=== PATIENT | female | born 1940 | race Caucasian/White ===

== ENCOUNTER 2016-07-07 20:30 | Inpatient (IN) | payer OTHER, MEDICARE ==
[~2016-07-07] VITALS: Ht 167.6 cm; Wt 119.7 kg
[~2016-07-07 20:30] MED LIST: ALPR0.2583 PO; BISA5TAB10 PO; BUPR-120 PO; CYAN100067 PO; DICL100G16 TP; DILT120C89 PO; DOCU-144 PO; EZET10TA PO; FERR-57 PO; HYDR-1189 PO; IBUP-1479 PO; MAG360OR3 PO; METH500T PO; METO25TA3 PO; MULT-33 PO; NEU100 PO; NITR50CA PO; OXYC10TA71 PO; PREMVAG VG; PRO20 PO; RIVA10TA PO; TOPI100T11 PO; VITD2000 PO; [UNRECOGNIZED DRUG - CODE] PO
--- NOTE | 2016-07-07 20:35 | NUR ---
Patient to ER bed 05 to gown for evaluation. Side rails up.
[2016-07-07 20:39] VITALS: BP 156/90; PULSE 84; RESP 19; TEMP 98.3; O2SAT 94
--- NOTE | 2016-07-07 20:40 | NUR ---
Dr murphy at bedside examining patient
--- NOTE | 2016-07-07 20:40 | NUR ---
Pt A&Ox4, brought by ambulance from [facility], pt reports she may have "choked" while eating dinner, has been coughing, stridor noted in upper airway, O2 95% room air, no chest retractions, cap refill <3, skin pink and warm.
[2016-07-07] MEDS ORDERED: NACL 0.9% 1,000 ML IV ONE (21:10)
[2016-07-07 21:29] LABS: BLOOD GAS PH 7.385 (7.350-7.450)
[2016-07-07 21:30] LABS: BLOOD GAS BASE EXCESS -3.4 mmol/L (-3.0-3.0); BLOOD GAS COHb% 0.9 % (0.5-1.5); BLOOD GAS HHB 7.2 % (0.0-6.0); BLOOD O2Hb% 91.4 % (94.0-97.0)
--- NOTE | 2016-07-07 21:30 | NUR ---
Pt off the unit for CT
[2016-07-07 21:40] LABS: EOSINOPHILS # (AUTO) 0.2 K/uL (0.0-0.4); LYMPHOCYTES # (AUTO) 1.3 K/uL (1.0-5.5)
[2016-07-07 21:42] LABS: BASOPHILS # (AUTO) 0.1 K/uL (0.0-0.2); BASOPHILS % (AUTO) 1.2 % (0.0-2.0); EOSINOPHILS % (AUTO) 1.9 % (0.0-4.0); HEMATOCRIT 43.3 % (36-48); HEMOGLOBIN 15.2 g/dL (12.0-16.0); LYMPHOCYTES % (AUTO) 14.2 % (20.5-51.5); MEAN CORPUSCULAR HEMOGLOBIN 33 pg (27-31); MEAN CORPUSCULAR HGB CONC 35 % (32-36); MEAN CORPUSCULAR VOLUME 95 fL (79.0-98.0); MONOCYTES # (AUTO) 0.5 K/uL (0.0-1.0); MONOCYTES % (AUTO) 5.1 % (1.7-9.3); NEUTROPHILS # (AUTO) 6.8 K/uL (1.8-7.7); NEUTROPHILS % (AUTO) 77.6 % (40.0-70.0); PLATELET COUNT (AUTO) 164 K/uL (130-430); RED BLOOD CELL COUNT(AUTO) 4.56 MIL/uL (4.2-6.2); RED CELL DISTRIBUTION WIDTH 12.8 % (9.0-15.0); WHITE BLOOD COUNT (AUTO) 8.9 K/uL (4.8-10.8)
[2016-07-07 21:46] LABS: ANION GAP 9 (5-15); CALCIUM 9.3 mg/dL (8.4-11.0); CHLORIDE 107 mmol/L (98-107); CREATININE 0.86 mg/dL (0.55-1.30); GLUCOSE 115 mg/dL (70-99); POTASSIUM 3.9 mmol/L (3.5-5.1); SODIUM SERUM 141 mmol/L (136-145); UREA NITROGEN, BLOOD 22 mg/dL (8-21)
[2016-07-07 21:51] LABS: ALANINE AMINOTRANSFERASE 18 U/L (12-78); ASPARTATE AMINOTRANSFERASE 12 U/L (10-37); TOTAL BILIRUBIN 0.4 mg/dL (0.0-1.0); TOTAL PROTEIN, SERUM 7.7 g/dL (6.4-8.3)
[2016-07-07] MEDS ORDERED: methylPREDNISolone SOD SUCC/PF 62.5 MG/ML VIAL IVP ONE (22:00)
--- NOTE | 2016-07-07 22:15 | NUR ---
Pt returned to unit with no incidents, VS WNL, skin pink and warm, respirations even and unlabored, cap refill <3.
[2016-07-07] MEDS ORDERED: PIPERACILLIN/TAZO 3.375 GM in NS 50 ML IV ONE (22:45)
--- NOTE | 2016-07-07 22:45 | NUR ---
Medication reconciliation completed with information provided by patient documentation . Any prior medication reconciliation on file was reviewed and corrected.
[2016-07-07] MEDS ORDERED: PIPERACILLIN/TAZOBACTAM 3.375 GM/VIAL (ZOSYN) IV ONE (22:54)
--- NOTE | 2016-07-07 23:19 | NUR ---
Report given to Isaac BECERRA
--- NOTE | 2016-07-07 23:36 | NUR ---
ADMISSION NOTE Received patient from ER via [facility] under the care of . Patient admitted with diagnosis of Aspiration. Patient is awake, alert, oriented X 4. Patient oriented to hospital room, call light, toileting, pain management and safety-teach back done. Patient informed that his nurse will Jim Suggs and that her room number is 114B. Call light within reach. Keep comfortable and all needs will be met.
--- NOTE | 2016-07-08 00:20 | NUR ---
Transfer to Tele via ACLS protocol. Licensed nurse present. IV present no signs or symptoms of infiltration.
--- NOTE | 2016-07-08 00:30 | NUR ---
CONSULT: DR CALLAHAN (DR PEDRO O/C) Consult was called, RE aspiration nancy Marc
--- NOTE | 2016-07-08 00:45 | NUR ---
Low Weight Loss matres applied d/t low davis score .
[2016-07-08 01:05] VITALS: BP 136/79; PULSE 74; RESP 20; TEMP 97.9; O2SAT 96
--- NOTE | 2016-07-08 01:23 | NUR ---
Patient awake alert assist for position change , HOB elevated on 02 NC @ 2 LPM skin dry warm no dyspnea on exertion / .
--- NOTE | 2016-07-08 01:24 | NUR ---
Hourly Rounding patient awake verbally indicative , call bullock with patient / .
--- NOTE | 2016-07-08 02:28 | NUR ---
Patient resting on 02 NC @ 2 LPM respirations unlabored HOB elevated chest movement also symmetrical no complaints made / .
[2016-07-08 04:09] VITALS: BP 149/67; PULSE 104; RESP 20; TEMP 97.8; O2SAT 93
[2016-07-08 04:22] VITALS: BP 128/72; PULSE 75; RESP 16; TEMP 98; O2SAT 96
--- NOTE | 2016-07-08 05:58 | NUR ---
assist patient for position change on air flow matres , kept clean & dry as needed no complaints made / .
--- NOTE | 2016-07-08 07:20 | NUR ---
initial notes: pt on bed sleeping. no distress noted. i.v. access patent. report given at bedside. call light within reach.
[2016-07-08 08:00] VITALS: BP 124/58; PULSE 74; RESP 14; TEMP 97.2; O2SAT 93
--- NOTE | 2016-07-08 09:53 | NUR ---
Nutrition Update Ward Scale 18 noted. Pt admitted for aspiration. Diet: full liquid BMI: 42.8 kg/m2 RD to follow per nutrition care standards.
--- NOTE | 2016-07-08 10:10 | NUR ---
rounds: pt on bed resting. no distress noted.
[2016-07-08] MEDS ORDERED: METHOCARBAMOL 500 MG TABLET PO PRN (11:00)
[2016-07-08] MEDS ORDERED: FERROUS SULFATE 325 MG TABLET.DR PO ONE (11:45)
[2016-07-08] MEDS ORDERED: oxyCODONE HCL 10 MG TAB.ER.12H PO ONE (11:45)
[2016-07-08] MEDS ORDERED: DILTIAZEM HCL 120 MG CAP.SR.24H PO ONE (11:45)
[2016-07-08] MEDS ORDERED: CHOLECALCIFEROL (VITAMIN D3) 2,000 UNIT TABLET PO ONE (11:45)
[2016-07-08] MEDS ORDERED: FLUoxetine HCL 20 MG CAPSULE (PROzac) PO ONE (11:45)
[2016-07-08] MEDS ORDERED: CYANOCOBALAMIN 1000 mCg TABLET PO ONE (11:45)
[2016-07-08] MEDS ORDERED: ALPRAZolam 0.25 MG TABLET PO ONE (11:45)
[2016-07-08] MEDS ORDERED: buPROPion HCL 150 MG XL TAB PO ONE (11:45)
[2016-07-08] MEDS ORDERED: METOPROLOL SUCCINATE 25 MG TAB.SR.24H (TOPROL XL) PO ONE (11:45)
[2016-07-08] MEDS ORDERED: CONJUGATED ESTROGENS VAGINAL CREAM 42.5 GM .APPL VG ONE (11:45)
[2016-07-08] MEDS ORDERED: MULTIVITS,CA,MINERALS/IRON/FA 1 TABLET PO ONE (11:45)
[2016-07-08] MEDS ORDERED: EZETIMIBE 10 MG TABLET PO ONE (11:45)
[2016-07-08] MEDS ORDERED: RIVAROXABAN 10 MG TABLET PO ONE (11:45)
[2016-07-08] MEDS: IBUPROFEN 400 MG TABLET PO PRN (12:01)
--- NOTE | 2016-07-08 12:09 | NUR ---
med pass: medication given and patient compliant.
[2016-07-08 12:43] VITALS: BP 127/65; PULSE 76; RESP 17; TEMP 97; O2SAT 95
--- NOTE | 2016-07-08 14:07 | NUR ---
rounds: pt on bed watching t.v. no distress noted.
[2016-07-08] MEDS ORDERED: MILK OF MAGNESIA 30 ML UDC PO PRN (14:30)
[2016-07-08] MEDS: FERROUS SULFATE 325 MG TABLET.DR PO SCH ×2 (15:08→20:28)
--- NOTE | 2016-07-08 16:00 | NUR ---
Tate rounds: seen by Dr. Daugherty.
[2016-07-08 16:20] VITALS: BP 121/66; PULSE 70; RESP 19; TEMP 97.4; O2SAT 94
--- NOTE | 2016-07-08 17:28 | NUR ---
SWALLOW EVAL LEFT FOR YAMEL () [phone] @ [phone]
--- NOTE | 2016-07-08 17:40 | NUR ---
rounds: pt on bed having dinner. no distress noted.
--- NOTE | 2016-07-08 18:36 | NUR ---
closing notes: pt on bed having dinner. stable. needs attended. call light within reach.
--- NOTE | 2016-07-08 19:45 | NUR ---
ROUNDS PATIENT IN BED, WATCHING TV, VITALS STABLE, DENIES ANY PAIN AND DISCOMFORT AT THIS TIME. ASSESSMENT DONE AND DOCUMENTED. SEE FLOWSHEET. NEEDS ATTENDED TO. REPOSITIONED AND MADE COMFORTABLE. SAFETY AND FALL PRECAUTION MEASURES IN PLACED. BED IN LOW AND LOCKED POSITION. CALL LIGHT PLACED WITHIN REACH.
[2016-07-08] MEDS: oxyCODONE HCL 10 MG TAB.ER.12H PO SCH (20:28)
[2016-07-08] MEDS: MULTIVITS,CA,MINERALS/IRON/FA 1 TABLET PO SCH (20:28)
[2016-07-08] MEDS: GABAPENTIN 100 MG CAPSULE PO SCH (20:29)
[2016-07-08] MEDS: TOPIRAMATE 100 MG TABLET(Topamax) PO SCH (20:29)
[2016-07-08] MEDS: ALPRAZolam 0.25 MG TABLET PO SCH (20:30)
--- NOTE | 2016-07-08 21:15 | NUR ---
MEDICATION DUE MEDICATIONS GIVEN SCHEDULED, TOLERATED WELL. WILL CONTINUE TO MONITOR.
[2016-07-09] VITALS: BP 126/68; PULSE 72; RESP 19; TEMP 97.6; O2SAT 96
--- NOTE | 2016-07-09 | NUR ---
PATIENT RESTING: Patient resting quietly. No acute distress noted. Vital signs within normal range.
--- NOTE | 2016-07-09 02:30 | NUR ---
PATIENT RESTING: Patient resting quietly. No acute distress noted. Vital signs within normal range.
--- NOTE | 2016-07-09 04:00 | NUR ---
PATIENT RESTING: Patient resting quietly. No acute distress noted. Vital signs within normal range.
[2016-07-09 04:45] VITALS: BP 122/72; PULSE 74; RESP 19; TEMP 97.9; O2SAT 98
--- NOTE | 2016-07-09 06:48 | NUR ---
CLOSING NOTES PATIENT AWAKE, VITALS STABLE, ALL NEEDS ATTENDED TO. SAFETY AND FALL PRECAUTION MEASURES MAINTAINED. CALL LIGHT PLACED WITHIN REACH.
--- NOTE | 2016-07-09 07:20 | NUR ---
initial notes: pt on bed sleeping. no distress noted. i.v. access patent. on scd. call light within reach. report given at bedside.
[2016-07-09 08:00] VITALS: BP 131/63; PULSE 70; RESP 14; TEMP 97.3; O2SAT 95
[2016-07-09] MEDS: buPROPion HCL 150 MG XL TAB PO SCH (09:27)
[2016-07-09] MEDS: oxyCODONE HCL 10 MG TAB.ER.12H PO SCH ×2 (09:27→21:31)
[2016-07-09] MEDS: FLUoxetine HCL 20 MG CAPSULE (PROzac) PO SCH (09:29)
[2016-07-09] MEDS: RIVAROXABAN 10 MG TABLET PO SCH (09:29)
[2016-07-09] MEDS: DILTIAZEM HCL 120 MG CAP.SR.24H PO SCH (09:29)
[2016-07-09] MEDS: FERROUS SULFATE 325 MG TABLET.DR PO SCH ×3 (09:29→21:32)
[2016-07-09] MEDS: CYANOCOBALAMIN 1000 mCg TABLET PO SCH (09:30)
[2016-07-09] MEDS: MULTIVITS,CA,MINERALS/IRON/FA 1 TABLET PO SCH ×2 (09:30→21:33)
[2016-07-09] MEDS: EZETIMIBE 10 MG TABLET PO SCH (09:30)
[2016-07-09] MEDS: ALPRAZolam 0.25 MG TABLET PO SCH ×2 (09:31→21:34)
[2016-07-09] MEDS: CHOLECALCIFEROL (VITAMIN D3) 2,000 UNIT TABLET PO SCH (09:31)
[2016-07-09] MEDS: METOPROLOL SUCCINATE 25 MG TAB.SR.24H (TOPROL XL) PO SCH (09:41)
--- NOTE | 2016-07-09 09:44 | NUR ---
med pass: pt given medication with water and able to tolerate.
[2016-07-09 12:00] VITALS: BP 119/47; PULSE 64; RESP 20; TEMP 98; O2SAT 96
--- NOTE | 2016-07-09 13:30 | NUR ---
Speech Therapy: swallow eval done and recommended for mechanical soft diet.
--- NOTE | 2016-07-09 14:02 | NUR ---
S.T. SWALLOW EVAL COMPLETED. PT PRESENTS W/ FUNCTIONAL OROPHARYNGEAL SWALLOW W/ NO S/S OF ASPIRATION. [facility]. NURSE ZHANE NOTIFIED. [id number] CI G8997 CI G8998 CI NOMS LEVEL 6
--- NOTE | 2016-07-09 14:24 | NUR ---
rounds: pt on bed resting. stable.
[2016-07-09 16:00] VITALS: BP 133/60; PULSE 66; RESP 19; TEMP 98.8; O2SAT 94
[2016-07-09 17:39] VITALS: Ht 167.6 cm; Wt 119.7 kg
--- NOTE | 2016-07-09 18:46 | NUR ---
closing notes: patient changed to mechanical soft. she tolerated well without aspiration. Sitting on her bed. Stable. call light within reach. report will be given to incoming nurse.
--- NOTE | 2016-07-09 20:00 | NUR ---
ROUNDS PATIENT AWAKE, WATCHING TV, VITALS STABLE, DENIES ANY PAIN AND DISCOMFORT AT THIS TIME. ASSESSMENT DONE AND DOCUMENTED. SSEE FLOWSHEET. NEEDS ATTENDED TO. SAFETY AND FALL PRECAUTION MEASURES IN PLACED. BED IN LOW AND LOCKED POSITION. CALL LIGHT PLACED WITHIN REACH.
--- NOTE | 2016-07-09 21:10 | NUR ---
MEDICATION DUE MEDICATIONS GIVEN SCHEDULED, TOLERATED WELL. WILL CONTINUE TO MONITOR.
[2016-07-09] MEDS: TOPIRAMATE 100 MG TABLET(Topamax) PO SCH (21:32)
[2016-07-09] MEDS: GABAPENTIN 100 MG CAPSULE PO SCH (21:34)
[2016-07-09 23:59] VITALS: BP 151/61; PULSE 74; RESP 16; TEMP 97.6; O2SAT 96
--- NOTE | 2016-07-10 | NUR ---
PATIENT RESTING: Patient resting quietly. No acute distress noted. Vital signs within normal range.
--- NOTE | 2016-07-10 02:15 | NUR ---
PATIENT RESTING: Patient resting quietly. No acute distress noted. Vital signs within normal range.
[2016-07-10 04:14] VITALS: BP 131/69; PULSE 66; RESP 16; TEMP 98.4; O2SAT 93
[2016-07-10 07:34] LABS: BASOPHILS % (AUTO) 0.6 % (0.0-2.0); EOSINOPHILS # (AUTO) 0.3 K/uL (0.0-0.4); EOSINOPHILS % (AUTO) 4.8 % (0.0-4.0); HEMATOCRIT 40.3 % (36-48); HEMOGLOBIN 13.7 g/dL (12.0-16.0); LYMPHOCYTES # (AUTO) 2.1 K/uL (1.0-5.5); LYMPHOCYTES % (AUTO) 35.4 % (20.5-51.5); MEAN CORPUSCULAR HEMOGLOBIN 34 pg (27-31); MEAN CORPUSCULAR HGB CONC 34 % (32-36); MEAN CORPUSCULAR VOLUME 100 fL (79.0-98.0); MONOCYTES # (AUTO) 0.5 K/uL (0.0-1.0); MONOCYTES % (AUTO) 8.8 % (1.7-9.3); NEUTROPHILS # (AUTO) 3.1 K/uL (1.8-7.7); NEUTROPHILS % (AUTO) 50.4 % (40.0-70.0); PLATELET COUNT (AUTO) 151 K/uL (130-430); RED BLOOD CELL COUNT(AUTO) 4.05 MIL/uL (4.2-6.2); RED CELL DISTRIBUTION WIDTH 12.8 % (9.0-15.0)
[2016-07-10 08:00] LABS: ANION GAP 5 (5-15); CALCIUM 8.6 mg/dL (8.4-11.0); CHLORIDE 107 mmol/L (98-107); CREATININE 0.76 mg/dL (0.55-1.30); GLUCOSE 83 mg/dL (70-99); POTASSIUM 3.8 mmol/L (3.5-5.1); SODIUM SERUM 142 mmol/L (136-145); UREA NITROGEN, BLOOD 22 mg/dL (8-21)
--- NOTE | 2016-07-10 08:00 | NUR ---
Am rounds Pt received pt awake alert oriented x3. Pt noted though to be slow to respond at times. Pt Vital SS, denies any pain or distress. Pt has iv patent no sign of infiltration, right AC. Pt has SCD bilaterally with heels elevated. No pain or distress at this time. Call light in reach. talked to patient about her POC. Verbalized understanding.
[2016-07-10] MEDS: CHOLECALCIFEROL (VITAMIN D3) 2,000 UNIT TABLET PO SCH (08:30)
[2016-07-10] MEDS: METOPROLOL SUCCINATE 25 MG TAB.SR.24H (TOPROL XL) PO SCH (08:31)
[2016-07-10] MEDS: FLUoxetine HCL 20 MG CAPSULE (PROzac) PO SCH (08:31)
[2016-07-10] MEDS: DILTIAZEM HCL 120 MG CAP.SR.24H PO SCH (08:32)
[2016-07-10] MEDS: RIVAROXABAN 10 MG TABLET PO SCH (08:32)
[2016-07-10] MEDS: buPROPion HCL 150 MG XL TAB PO SCH (08:32)
[2016-07-10] MEDS: oxyCODONE HCL 10 MG TAB.ER.12H PO SCH ×2 (08:32→20:59)
[2016-07-10] MEDS: MULTIVITS,CA,MINERALS/IRON/FA 1 TABLET PO SCH ×2 (08:33→20:59)
[2016-07-10] MEDS: FERROUS SULFATE 325 MG TABLET.DR PO SCH ×3 (08:33→20:59)
[2016-07-10] MEDS: CYANOCOBALAMIN 1000 mCg TABLET PO SCH (08:33)
[2016-07-10] MEDS: EZETIMIBE 10 MG TABLET PO SCH (08:33)
[2016-07-10] MEDS: ALPRAZolam 0.25 MG TABLET PO SCH ×2 (08:34→20:58)
[2016-07-10 08:42] VITALS: BP 141/75; PULSE 68; RESP 18; TEMP 98.6; O2SAT 96
--- NOTE | 2016-07-10 11:30 | NUR ---
Call from son Harpal. States he will pass by to se patient later.
--- NOTE | 2016-07-10 11:49 | NUR ---
trigeminy reported. no cardio consults. Dr cedeno paged.
--- NOTE | 2016-07-10 11:59 | NUR ---
Dr Kinsey made aware of the episode of PVC - Trigeminy. No new orders. Pts VSS.
[2016-07-10 12:00] VITALS: BP 124/67; PULSE 69; RESP 21; TEMP 98; O2SAT 96
[2016-07-10] MEDS: CONJUGATED ESTROGENS VAGINAL CREAM 42.5 GM .APPL VG SCH (13:36)
--- NOTE | 2016-07-10 14:00 | NUR ---
Rounds Patient administered own vaginal cream scheduled MWF. Pt cleaned and repositioned.
[2016-07-10] MEDS: IBUPROFEN 400 MG TABLET PO PRN (14:55)
[2016-07-10 16:00] VITALS: BP 132/80; PULSE 66; RESP 20; TEMP 99.3; O2SAT 95
--- NOTE | 2016-07-10 16:00 | NUR ---
Call from patients sister from [facility], spoke to patient. Pt stable, call light in reach. Pt also repositioned.
--- NOTE | 2016-07-10 18:29 | NUR ---
Rounds Patient resting no distress, seizure pads in place, IV with no signs of infiltration or infection. Call light in reach.
--- NOTE | 2016-07-10 18:30 | NUR ---
Closing note Pt resting no distress. Will endorse to shift foreman.
[2016-07-10 20:00] VITALS: BP 135/77; PULSE 69; RESP 18; TEMP 98.6; O2SAT 96
--- NOTE | 2016-07-10 20:00 | NUR ---
Initial Notes Received patient resting in bed with eyes closed, easily aroused to name. Patient awake, alert, oriented but slow to respond at times. Patient denies any acute distress or pain at this time. Breathing even and unlabored on room air. Vital signs stable. IV site patent/clean/dry. Patient on low air loss mattress with seizure precautions. SCDs to BLE. Educated patient on use of call light for assistance and fall precautions, patient verbalized understanding. Incontinence care provided, and patient repositioned for comfort. Call light in hand, will continue to monitor.
[2016-07-10] MEDS: GABAPENTIN 100 MG CAPSULE PO SCH (20:58)
[2016-07-10] MEDS: TOPIRAMATE 100 MG TABLET(Topamax) PO SCH (20:59)
--- NOTE | 2016-07-10 22:11 | NUR ---
Rounds Patient resting in bed with eyes closed. No acute distress noted. Breathing even and unlabored. Call light in hand, will continue to monitor for changes and safety.
[2016-07-11] VITALS: BP 131/74; PULSE 70; RESP 16; TEMP 97.5; O2SAT 96
--- NOTE | 2016-07-11 | NUR ---
Rounds Patient resting in bed, awake. Patient denies any acute distress or pain. Breathing even and unlabored. Patient repositioned for comfort. Needs addressed, call light in hand. Will continue to monitor.
--- NOTE | 2016-07-11 02:00 | NUR ---
Rounds Patient resting in bed with eyes closed. No acute distress noted, breathing even and unlabored. Call light in hand, will continue to monitor.
[2016-07-11 04:00] VITALS: BP 127/71; PULSE 59; RESP 16; TEMP 76.4; TEMP 97.4; O2SAT 93
--- NOTE | 2016-07-11 04:06 | NUR ---
Rounds Patient resting in bed with eyes closed, easily aroused. Patient denies any acute distress or pain at this time. Needs addressed, call light in hand. Will continue to monitor.
--- NOTE | 2016-07-11 06:33 | NUR ---
Closing Notes Patient resting in bed with eyes closed, easily aroused. Patient denies any acute distress or pain. Breathing even and unlabored. IV site patent/clean/dry. Incontinence care provided. Needs addressed throughout shift. Call light in hand, fall precautions in place. Will continue to monitor for changes and safety, and endorse all patient care/needs to oncoming nurse.
[2016-07-11 07:42] LABS: ANION GAP 6 (5-15); CALCIUM 8.7 mg/dL (8.4-11.0); CHLORIDE 106 mmol/L (98-107); CREATININE 0.85 mg/dL (0.55-1.30); GLUCOSE 86 mg/dL (70-99); PHOSPHORUS 4.1 mg/dL (2.7-4.5); SODIUM SERUM 139 mmol/L (136-145); UREA NITROGEN, BLOOD 27 mg/dL (8-21)
[2016-07-11 08:00] VITALS: BP 110/43; PULSE 65; RESP 19; TEMP 97.7; O2SAT 97
--- NOTE | 2016-07-11 08:10 | NUR ---
OPENING NOTE RECEIVED REPORT FROM NIGHT NURSE, PATIENT IS RESTING COMFORTABLY IN BED WITH NO COMPLAINTS OF PAIN, NO NOTED DISTRESS, DISCOMFORT OR SOB. PATIENT IS ALERT AND ORIENTED AND ABLE TO COMMUNICATE NEEDS TO STAFF. PATIENT IS BEDREST AND HAS SEIZURE PRECAUTIONS ON BED. BED IS IN LOWEST POSITION AND CALL LIGHT IS WITHIN REACH. WILL CONTINUE TO MONITOR.
[2016-07-11] MEDS: RIVAROXABAN 10 MG TABLET PO SCH (08:53)
[2016-07-11] MEDS: EZETIMIBE 10 MG TABLET PO SCH (08:53)
[2016-07-11] MEDS: CYANOCOBALAMIN 1000 mCg TABLET PO SCH (08:53)
[2016-07-11] MEDS: DILTIAZEM HCL 120 MG CAP.SR.24H PO SCH (08:54)
[2016-07-11] MEDS: oxyCODONE HCL 10 MG TAB.ER.12H PO SCH ×2 (08:54→21:22)
[2016-07-11] MEDS: FERROUS SULFATE 325 MG TABLET.DR PO SCH ×3 (08:55→21:22)
[2016-07-11] MEDS: MULTIVITS,CA,MINERALS/IRON/FA 1 TABLET PO SCH ×2 (08:55→21:22)
[2016-07-11] MEDS: ALPRAZolam 0.25 MG TABLET PO SCH ×2 (08:55→21:23)
[2016-07-11] MEDS: FLUoxetine HCL 20 MG CAPSULE (PROzac) PO SCH (08:56)
[2016-07-11] MEDS: buPROPion HCL 150 MG XL TAB PO SCH (08:56)
[2016-07-11] MEDS: CHOLECALCIFEROL (VITAMIN D3) 2,000 UNIT TABLET PO SCH (08:57)
[2016-07-11] MEDS: METOPROLOL SUCCINATE 25 MG TAB.SR.24H (TOPROL XL) PO SCH (09:00)
--- NOTE | 2016-07-11 10:25 | NUR ---
note patient resting comfortably. no pain, discomfort, SOB, or distress noted. vital signs were within normal limits. blood pressure was 110/43 and metoprolol was withheld. all other medications were administered with no problems. bed in lowest position, safety padding in place, and call light within reach. will continue to monitor.
[2016-07-11 12:00] VITALS: BP 105/53; PULSE 68; RESP 20; TEMP 97.9; O2SAT 93
--- NOTE | 2016-07-11 12:33 | NUR ---
notes Patient is resting comfortably. she rates her pain as mild and states she is comfortable. Patient is in good spirits. Bed is in lowest position, padding on bed is in place, and call light is within reach. will continue to monitor.
--- NOTE | 2016-07-11 14:28 | NUR ---
notes Patient is resting comfortably and in good spirits. No signs or symptoms of discomfort or distress. Padding in place on bed rails and bed in lowest position. call light within reach. will continue to monitor.
--- NOTE | 2016-07-11 16:36 | NUR ---
notes Patient is resting comfortably. Patient denies any pain or distress. Padding is in place on bed rails and bed is in lowest position. Call light is within reach. Will continue to monitor.
[2016-07-11 18:12] VITALS: BP 127/62; PULSE 77; RESP 20; TEMP 97.2; O2SAT 93
[2016-07-11] MEDS: HYDROcodone/ACETAMIN 5-325 MG TAB (NORCO/ VICODIN) PO PRN (18:20)
--- NOTE | 2016-07-11 18:26 | NUR ---
CLOSING NOTE PATIENT COMPLAINED OF PAIN, PAIN MEDICATION GIVEN. NO NOTED DISTRESS OR SOB. WILL MONITOR PAIN LEVEL. BED IN LOWEST POSITION, PADDING ON BED, CALL LIGHT WITHIN REACH. WILL GIVE REPORT TO AMERICO BECERRA
[2016-07-11 20:00] VITALS: BP 117/67; PULSE 83; RESP 19; TEMP 97.4; O2SAT 94
--- NOTE | 2016-07-11 20:00 | NUR ---
PM Shift Assessment Received patient lying on low air loss mattress, no acute distress noted, AAO x2 with confusion at times. Patient was reoriented x4 and verbalized understanding. Assessment complete, vital signs stable. SCD's noted to BLE. Padded side rails for safety. Plan of care discussed with patient and updated on board. Patient able to provide return demonstration of call light, instructed to call for assistance as needed, she verbalized understanding. Call light is within reach, all fall and safety precautions in place, will continue to monitor for change in patient status.
[2016-07-11] MEDS: GABAPENTIN 100 MG CAPSULE PO SCH (21:22)
[2016-07-11] MEDS: TOPIRAMATE 100 MG TABLET(Topamax) PO SCH (21:23)
--- NOTE | 2016-07-11 21:45 | NUR ---
Transfer of Care Patient is resting quietly in bed, no acute distress noted. Scheduled medications were administered as ordered per MD, patient tolerated well. Transfer of care was endorsed to Britt BECERRA at bedside.
--- NOTE | 2016-07-11 22:00 | NUR ---
PM ASSESSMENT: Resumed care of patient at this time. Received report from MARIAM Cabral. Patient awake, alert x 1 with periods of confusion. Able to make needs known verbally. No acute distress or SOB noted. Breathing even and unlabored. Denies any pain or discomfort. Bilateral SCDs in place. On low air loss mattress. HOB elevated at 30 degrees, with 2 padded side rails up and bed in lowest level. Bed brakes locked. All needs met. Call light within reach. Will continue to monitor.
--- NOTE | 2016-07-11 23:17 | NUR ---
RN ROUNDS: Patient sleeping comfortably at this time. No seizure activity noted. Patient in no acute distress or SOB at this time. Will continue to monitor.
[2016-07-12] VITALS (7 sets, daily range): BP systolic 109–135; BP diastolic 48–82; PULSE 78–101; RESP 15–19; TEMP 97.5–98.9; O2SAT 92–97
--- NOTE | 2016-07-12 02:13 | NUR ---
RN ROUNDS: Patient sleeping comfortably at this time. No acute distress or SOB noted. Vital signs stable. Will continue to monitor.
--- NOTE | 2016-07-12 05:08 | NUR ---
RN ROUNDS: Patient resting comfortably at this time. Patient repositioned by staff every 2 hours with pillow support. Patient in no acute distress or SOB. Safety and fall precautions in place. Will continue to monitor.
[2016-07-12 07:35] LABS: BASOPHILS % (AUTO) 0.5 % (0.0-2.0); EOSINOPHILS # (AUTO) 0.2 K/uL (0.0-0.4); EOSINOPHILS % (AUTO) 4.4 % (0.0-4.0); HEMATOCRIT 39.7 % (36-48); HEMOGLOBIN 13.4 g/dL (12.0-16.0); LYMPHOCYTES # (AUTO) 1.7 K/uL (1.0-5.5); LYMPHOCYTES % (AUTO) 31.4 % (20.5-51.5); MEAN CORPUSCULAR HEMOGLOBIN 33 pg (27-31); MEAN CORPUSCULAR HGB CONC 34 % (32-36); MEAN CORPUSCULAR VOLUME 97 fL (79.0-98.0); MONOCYTES # (AUTO) 0.5 K/uL (0.0-1.0); MONOCYTES % (AUTO) 8.6 % (1.7-9.3); NEUTROPHILS # (AUTO) 3.2 K/uL (1.8-7.7); NEUTROPHILS % (AUTO) 55.1 % (40.0-70.0); PLATELET COUNT (AUTO) 140 K/uL (130-430); RED BLOOD CELL COUNT(AUTO) 4.08 MIL/uL (4.2-6.2); RED CELL DISTRIBUTION WIDTH 12.9 % (9.0-15.0); WHITE BLOOD COUNT (AUTO) 5.6 K/uL (4.8-10.8)
[2016-07-12 07:38] LABS: ANION GAP 7 (5-15); CALCIUM 8.5 mg/dL (8.4-11.0); CHLORIDE 107 mmol/L (98-107); CREATININE 0.78 mg/dL (0.55-1.30); GLUCOSE 89 mg/dL (70-99); PHOSPHORUS 3.7 mg/dL (2.7-4.5); SODIUM SERUM 141 mmol/L (136-145); UREA NITROGEN, BLOOD 27 mg/dL (8-21)
--- NOTE | 2016-07-12 08:00 | NUR ---
AM ASSESSMENT. PT AWAKE AND ALERT, ASSESSED BODY DISCOMFORTS, DENIES ANY, REPOSITIONED UPRIGHT PRIOR TO BREAKFAST, VITAL SIGNS STABLE, WILL CONTINUE TO MONITOR.
--- NOTE | 2016-07-12 08:30 | NUR ---
DIET. PT HAVING HER BREAKFAST, WITH GOOD APPETITE.
[2016-07-12] MEDS: DILTIAZEM HCL 120 MG CAP.SR.24H PO SCH (08:31)
[2016-07-12] MEDS: FLUoxetine HCL 20 MG CAPSULE (PROzac) PO SCH (08:32)
[2016-07-12] MEDS: CHOLECALCIFEROL (VITAMIN D3) 2,000 UNIT TABLET PO SCH (08:32)
[2016-07-12] MEDS: FERROUS SULFATE 325 MG TABLET.DR PO SCH ×3 (08:33→20:30)
[2016-07-12] MEDS: oxyCODONE HCL 10 MG TAB.ER.12H PO SCH ×2 (08:33→20:26)
[2016-07-12] MEDS: CYANOCOBALAMIN 1000 mCg TABLET PO SCH (08:33)
[2016-07-12] MEDS: MULTIVITS,CA,MINERALS/IRON/FA 1 TABLET PO SCH ×2 (08:33→20:31)
[2016-07-12] MEDS: METOPROLOL SUCCINATE 25 MG TAB.SR.24H (TOPROL XL) PO SCH (08:34)
[2016-07-12] MEDS: RIVAROXABAN 10 MG TABLET PO SCH (08:42)
[2016-07-12] MEDS: EZETIMIBE 10 MG TABLET PO SCH (08:42)
[2016-07-12] MEDS: buPROPion HCL 150 MG XL TAB PO SCH (08:42)
[2016-07-12] MEDS: ALPRAZolam 0.25 MG TABLET PO SCH ×2 (08:43→20:25)
--- NOTE | 2016-07-12 10:00 | NUR ---
HYGIENE. PT INCONTINENT OF BLADDER, SPONGE BATH PROVIDED, PERINEAL AREA CLEANSED WITH SOAPY TOWEL. APPLIED Z-GUARD LOTION TO ABDOMINAL FOLDS.
[2016-07-12] MEDS: CONJUGATED ESTROGENS VAGINAL CREAM 42.5 GM .APPL VG SCH (10:24)
[2016-07-12] MEDS: HYDROcodone/ACETAMIN 5-325 MG TAB (NORCO/ VICODIN) PO PRN (15:50)
--- NOTE | 2016-07-12 18:15 | NUR ---
NURSING. PT ALERT, IN NO SIGNS OF DISTRESS, UNEVENTFUL SHIFT, CALL LIGHT IN REACH, WILL CONTINUE TO MONITOR.
--- NOTE | 2016-07-12 19:30 | NUR ---
initial nursing notes: Patient is awake. Patient is on an air bed. Patient's siderails are padded. Patient has a saline lock on the left AC. Patient has SCD's.
[2016-07-12] MEDS: GABAPENTIN 100 MG CAPSULE PO SCH (20:22)
[2016-07-12] MEDS: TOPIRAMATE 100 MG TABLET(Topamax) PO SCH (20:29)
--- NOTE | 2016-07-12 21:30 | NUR ---
nursing rounds: Patient is watching television. Kept head of the bed elevated to prevent aspiration.
--- NOTE | 2016-07-12 23:30 | NUR ---
nursing rounds: Patient resting in bed. Kept oxygen on 2L via nasal cannula. O2 sat: 96%.
[2016-07-13 00:47] VITALS: BP 115/68; PULSE 82; RESP 16; TEMP 98.2
--- NOTE | 2016-07-13 01:30 | NUR ---
nursing rounds: Patient is asleep in bed. Patient has no shortness of breath.
--- NOTE | 2016-07-13 03:25 | NUR ---
nursing rounds: Patient calmly resting in bed. Patient has no falls and no injuries.
[2016-07-13 04:19] VITALS: BP 116/70; PULSE 80; RESP 16; TEMP 98.6
--- NOTE | 2016-07-13 05:20 | NUR ---
nursing rounds: Patient is sleeping in bed. Patient has no respiratory distress.
--- NOTE | 2016-07-13 07:44 | NUR ---
closing nursing notes: Patient is awake, alert and oriented X 4. Patient denies of having pain. Patient is in no acute respiratory distress. Saline lock on the left AC is intact. Kept head of the bed elevated and siderails padded. Provided nursing report to incoming morning shift nurse, MARIAM Benz, at patient's bedside.
--- NOTE | 2016-07-13 09:12 | NUR ---
MEDICATION PASS. PATIENT ASSESSMENT. SHORTNESS OF BREATH ON EXCERTION MAY RELATE TO SIDE EFFECTS OF MEDICATION.
[2016-07-13] MEDS: FLUoxetine HCL 20 MG CAPSULE (PROzac) PO SCH (09:14)
[2016-07-13] MEDS: RIVAROXABAN 10 MG TABLET PO SCH (09:14)
[2016-07-13] MEDS: CHOLECALCIFEROL (VITAMIN D3) 2,000 UNIT TABLET PO SCH (09:14)
[2016-07-13] MEDS: CYANOCOBALAMIN 1000 mCg TABLET PO SCH (09:14)
[2016-07-13] MEDS: buPROPion HCL 150 MG XL TAB PO SCH (09:14)
[2016-07-13] MEDS: oxyCODONE HCL 10 MG TAB.ER.12H PO SCH (09:14)
[2016-07-13] MEDS: ALPRAZolam 0.25 MG TABLET PO SCH (09:15)
[2016-07-13] MEDS: MULTIVITS,CA,MINERALS/IRON/FA 1 TABLET PO SCH (09:15)
[2016-07-13] MEDS: DILTIAZEM HCL 120 MG CAP.SR.24H PO SCH (09:15)
[2016-07-13] MEDS: METOPROLOL SUCCINATE 25 MG TAB.SR.24H (TOPROL XL) PO SCH (09:15)
[2016-07-13] MEDS: FERROUS SULFATE 325 MG TABLET.DR PO SCH ×2 (09:15→15:00)
[2016-07-13] MEDS: EZETIMIBE 10 MG TABLET PO SCH (09:15)
[2016-07-13 09:19] VITALS: BP 126/73; PULSE 72; RESP 16; TEMP 97.2; O2SAT 95
--- NOTE | 2016-07-13 10:45 | NUR ---
GIVEN PRN MILK OF MAGNESIA. PATIENT C/O CONSTIPATION. CDA TEACHER NOTES PATIENT PASSING GAS.
[2016-07-13] MEDS ORDERED: BISACODYL 10 MG/SUPPOSITORY RC ONE (12:00)
[2016-07-13] MEDS ORDERED: BISACODYL 10 MG/SUPPOSITORY RC PRN (12:00)
[2016-07-13 12:51] VITALS: BP 137/87; PULSE 84; RESP 18; TEMP 97.7; O2SAT 91
--- NOTE | 2016-07-13 12:58 | NUR ---
PATIENT TOLERATING 100% OF LUNCH. PASS TO GIVE SUPPOSITORY. SAYS SHE WILL CALL WHEN READY FOR ADMINISTRATION TO ASSIST WITH BM.
--- NOTE | 2016-07-13 14:30 | NUR ---
CASE MANAGEMENT PATIENT WILL BE TRANSFERRED BACK TO [facility] PER MD ORDERS.[facility] TO TRANSPORT PATIENT AT 6PM. NOTIFIED PATIENTS SISTER RANJAN DEJESUS AT . PATIENT AGREES WITH DCP. STAFF INFORMED.
--- NOTE | 2016-07-13 14:48 | NUR ---
ROUNDS TO PATIENT. ONE SMALL AND ONE MEDIUM BM AFTER SUPPOSITORY AND MILK OF MAGNESIA PRIOR TO THIS.
[2016-07-13 16:02] VITALS: BP 137/87; PULSE 84; RESP 18; TEMP 97.7; O2SAT 91
[2016-07-13 16:36] VITALS: BP 140/90; PULSE 79; RESP 19; TEMP 96.9; O2SAT 93
--- NOTE | 2016-07-13 17:36 | NUR ---
Nutrition F/U Admitting Diagnosis Aspiration pneumonia Past Medical History HTN, HLD, chronic anxiety per MD notes Pertinent Medications zetia, VIT B-12, VIT D-3, therageran, ferrous sulfate, MOM, norco, dulcolax supp Current Diet Order Mechanical soft, chopped diet x5 day Height (Feet) 5 feet Height (Inches) 6.00 inches Weight (Pounds) 264 pounds Weight (Calculated Kilograms) 119.461075 kilograms Patient Weight 119.748 kg Body Mass Index 42.61 [place]/Adjusted Body Weight IBW: 130 lb, 59 kg. 203% of IBW. Adj IBW (obesity): 164 lb, 74 kg Estimated Needs (modified) 6069-8687 kcal/day (BEE x 1-1.2 for maintenance) Grams of Protein per Day 59-71 gm/day (1-1.2 gm/kg IBW for geriatric maintenance) Fluid Intake Goal 1.5-1.8 L/day (1 ml/kcal/day for maintenance) Pertinent Labs 07/12/16: BUN 27 H, BG 89 WNL (improved), Mg 2.4 H Other Subjective Data Pt seen resting in bed at time of visited, reported good PO intake. Pt stated she is going home today. Per RN, pt has been tolerating diet well with good PO intakes; confirmed pt is expected to be discharged later this evening. RN reported possible BM today. Per EMR, average PO intake is 84% x 3 days. Ward scale: 17; no skin issues noted. I/Os (07/13/16): 850/0 (+850 ml); 1 BM recorded today. Current diet is adequate and appropriate. Pt previously received nutrition education at last RD visit. Problem, Etiology, Signs/Symptoms Obesity related to excess energy intake as evidenced by BMI of 42.8 kg/m2. Expected Outcomes or Goals - Monitor appetite and PO intakes w/ goal of pt meeting at least 75% of estimated nutritional needs, labs trending WNL, normal GI function, and skin integrity/wt maintenance Dietitian Recommendations * Recommend continuing mechanical soft, chopped diet per MD Follow Up Mod Risk: F/U in 3-5 days
--- NOTE | 2016-07-13 17:39 | NUR ---
ROUNDS TO PATIENT. NEEDS MET AT THIS TIME.
--- NOTE | 2016-07-13 18:08 | NUR ---
D/C Patient Patient given medication reconciliation form and D/C instructions. Exit Care provided. Patient verbalized understanding. MD discussed with patient the results and treatment provided. Ambulatory with steady gait for discharge to home. Patient in stable condition, ID band removed. IV catheter removed, intact and dressing applied, no active bleeding. Rx given. Patient educated on pain management. All belongings sent with patient.
--- NOTE | 2016-07-13 20:02 | NUR ---
INCOMING CALL FROM KATE Fajardo at [facility] called to inquire about discharge of Bhavani Broderick. She said patient was sent to snf at [facility] and is getting conflicting information from snf staff stating they were not sure if she was to return to snf or assisted livilng. She asked for copy of oder and I faxed a copy of Dr Kinsey's order and the pillowcase turner's note.
== END 2016-07-13 18:10 | DRG 178 ==
LOC: SED 20:30 → STU 23:12 → SMU 07-12 15:05
PROVIDERS: ADMIT Family Medicine; ATTEND Family Medicine
DX: J69.0 Pneumonitis due to inhalation of food and vomit (principal); Z68.41 Body mass index [BMI] 40.0-44.9, adult; I10 Essential (primary) hypertension; E78.5 Hyperlipidemia, unspecified; M19.90 Unspecified osteoarthritis, unspecified site; F41.9 Anxiety disorder, unspecified; F32.9 Major depressive disorder, single episode, unspecified; E66.9 Obesity, unspecified; F03.90 Unspecified dementia, unspecified severity, without behavioral disturbance, psychotic disturbance, mood disturbance, and anxiety; Z88.5 Allergy status to narcotic agent; Z74.01 Bed confinement status; Z88.2 Allergy status to sulfonamides; Z79.899 Other long term (current) drug therapy; Z86.73 Personal history of transient ischemic attack (TIA), and cerebral infarction without residual deficits
CPT/HCPCS: 36415; 36600; 70490; 71010; 80048; 80053; 82803-TC; 83605; 83735-TC; 84100-TC; 85025; 87040-TC; 92610-GN; 96361; 96365; 96375; 97530-GP; 99291; J2543; J2930

== ENCOUNTER 2018-03-16 11:37 | Emergency (ER) | payer OTHER, MEDICARE ==
[~2018-03-16] VITALS: Ht 170.2 cm; Wt 99.8 kg
[~2018-03-16 11:37] MED LIST changes: +ALPR0.25 PO; -ALPR0.2583 PO; -BISA5TAB10 PO; +CYAN100010 PO; -CYAN100067 PO; -DICL100G16 TP; -DOCU-144 PO; -IBUP-1479 PO; +IBUP-1968 PO; -MAG360OR3 PO; -NITR50CA PO; +OXYC10TA56 PO; -OXYC10TA71 PO
[2018-03-16 11:44] VITALS: BP_SYST 118
--- NOTE | 2018-03-16 11:45 | NUR ---
Note jennyfer in ED - 03/16/18 at 1159 by [email or web address] Patient to [facility] for evaluation. Side rails up.
--- NOTE | 2018-03-16 11:45 | NUR ---
Patient to ER bed 03 to gown for evaluation. Side rails up.
--- NOTE | 2018-03-16 11:50 | NUR ---
Pt brought by ambulance,A&OX4, pt presents to ER with R middle thigh pain 01/09 after she fell from toilet yesterday , limited ROM, pedal pulses equal and strong.
[2018-03-16] MEDS ORDERED: IPRA3AMP9 INH (12:11)
[2018-03-16] MEDS ORDERED: ZOLP5TAB2 PO (12:11)
[2018-03-16] MEDS ORDERED: RAME8TAB15 PO (12:11)
[2018-03-16] MEDS ORDERED: BACL10TA PO (12:11)
[2018-03-16] MEDS ORDERED: [UNRECOGNIZED DRUG - CODE] PO (12:11)
[2018-03-16] MEDS ORDERED: CYAN100010 PO (12:11)
[2018-03-16] MEDS ORDERED: IBUP-1968 PO (12:11)
[2018-03-16] MEDS ORDERED: ELA25 PO (12:11)
[2018-03-16] MEDS ORDERED: DOCU-144 PO (12:11)
[2018-03-16] MEDS ORDERED: VITD2000 PO (12:11)
[2018-03-16] MEDS ORDERED: METH500T PO (12:11)
[2018-03-16] MEDS ORDERED: ROBDM PO (12:11)
[2018-03-16] MEDS ORDERED: HYDR-4038 PO (12:11)
[2018-03-16] MEDS ORDERED: GABA-531 PO (12:11)
[2018-03-16] MEDS ORDERED: ANT30 PO (12:11)
[2018-03-16] MEDS ORDERED: ALBU8.5H8 INH (12:11)
--- NOTE | 2018-03-16 12:14 | NUR ---
ER at bedside examining patient.
--- NOTE | 2018-03-16 12:46 | NUR ---
ER at bedside examining patient.
--- NOTE | 2018-03-16 13:14 | NUR ---
Pain medication was given to pt, tolerated well
[2018-03-16] MEDS ORDERED: KETOROLAC TROMETHAMINE 60 MG/2 ML VIAL IM ONE (13:15)
--- NOTE | 2018-03-16 14:20 | NUR ---
Straight cath was used with sterile techinque to get a urine sample. Pt tolerated well
--- NOTE | 2018-03-16 15:30 | NUR ---
Pt went to CT in stable condition
--- NOTE | 2018-03-16 15:40 | NUR ---
Pt returned from CT in stable condition
--- NOTE | 2018-03-16 16:10 | NUR ---
Dr Benson is at bedside explaining results to pt
[2018-03-16 16:21] VITALS: BP_SYST 125
--- NOTE | 2018-03-16 16:21 | NUR ---
Patient given written and verbal discharge instructions and verbalizes understanding. ER MD discussed with patient the results and treatment provided. Patient in stable condition. ID arm band removed. No Rx given. Patient educated on pain management and to follow up with PMD. Pain Scale 3. Opportunity for questions provided and answered.
--- NOTE | 2018-03-16 16:25 | NUR ---
[facility] is at bedside to take pt back to [facility]
--- NOTE | 2018-03-16 16:30 | NUR ---
Spoke to Shante at [facility] and gave report on pt coming back.
== END 2018-03-16 16:21 | disposition home or self-care (01) ==
LOC: SED 11:37
DX: S80.11XA Contusion of right lower leg, initial encounter (principal); F41.9 Anxiety disorder, unspecified; I10 Essential (primary) hypertension; Z88.2 Allergy status to sulfonamides; Z88.6 Allergy status to analgesic agent; Z86.73 Personal history of transient ischemic attack (TIA), and cerebral infarction without residual deficits; Z79.899 Other long term (current) drug therapy; W18.11XA Fall from or off toilet without subsequent striking against object, initial encounter; Y93.89 Activity, other specified; Y92.89 Other specified places as the place of occurrence of the external cause; Y99.8 Other external cause status
CPT/HCPCS: 71045; 72170; 73552; 73564; 73700; 96372; 99284; J1885; 99283

== ENCOUNTER 2020-10-22 18:53 | Inpatient (IN) | payer OTHER, MEDICARE, SELFPAY ==
[~2020-10-22] VITALS: Ht 167.6 cm; Wt 118.4 kg
[~2020-10-22 18:53] MED LIST changes: +ALBU8.5H8 INH; +AMIT25TA10 PO; +ANT30 PO; +BACL10TA PO; +DOCU-144 PO; +GABA-531 PO; -HYDR-1189 PO; +HYDR-4038 PO; +IPRA3AMP9 INH; -NEU100 PO; -OXYC10TA56 PO; -PREMVAG VG; +RAME8TAB15 PO; +ROBDM PO; +ZOLP5TAB2 PO
[2020-10-22 18:59] VITALS: BP_SYST 124
[2020-10-22 19:28] LABS: HEMATOCRIT 45.8 % (36-48); HEMOGLOBIN 15.4 g/dL (12.0-16.0); MEAN CORPUSCULAR HEMOGLOBIN 34 pg (27-31); MEAN CORPUSCULAR HGB CONC 34 % (32-36); MEAN CORPUSCULAR VOLUME 101 fL (79.0-98.0); PLATELET COUNT (AUTO) 124 K/uL (130-430); RED BLOOD CELL COUNT(AUTO) 4.56 MIL/uL (4.2-6.2); RED CELL DISTRIBUTION WIDTH 13.7 % (9.0-15.0); WHITE BLOOD COUNT (AUTO) 11.7 K/uL (4.8-10.8)
[2020-10-22] MEDS ORDERED: AZITHROMYCIN 500 MG in NS 250 ML IV ONE (19:45)
[2020-10-22] MEDS ORDERED: NS 500 ML IV ONE (19:45)
[2020-10-22 19:49] LABS: ANION GAP 12 (5-15); CALCIUM 8.3 mg/dL (8.4-11.0); CHLORIDE 106 mmol/L (98-107); CREATININE 1.25 mg/dL (0.55-1.30); GLUCOSE 149 mg/dL (70-99); POTASSIUM 3.9 mmol/L (3.5-5.1); SODIUM SERUM 141 mmol/L (136-145); UREA NITROGEN, BLOOD 17 mg/dL (8-21)
[2020-10-22 19:56] LABS: BAND % (MANUAL) 24 % (0-6); BASOPHILS % (MANUAL) 0 % (0-2); EOSINOPHILS % (MANUAL) 0 % (0-7); LYMPHOCYTES % (MANUAL) 1 % (20-46); MONOCYTES % (MANUAL) 2 % (0-11)
[2020-10-22] MEDS ORDERED: ACETAMINOPHEN 325 MG TABLET PO ONE (20:00)
[2020-10-22 20:03] LABS: ALANINE AMINOTRANSFERASE 40 U/L (12-78); ALBUMIN 3.7 g/dL (3.4-4.8); ASPARTATE AMINOTRANSFERASE 37 U/L (10-37); BILIRUBIN,DIRECT 0.2 mg/dL (0.0-0.3); LACTATE DEHYDROGENASE 255 U/L (81-234); LIPASE 50 U/L (73-393); TOTAL BILIRUBIN 0.7 mg/dL (0.0-1.0)
[2020-10-22] MEDS ORDERED: IOHEXOL 350 mgI/mL, 150 ML INFUS..BTL IV ONE ×2 (20:09→22:22)
[2020-10-22 20:15] LABS: BILIRUBIN,URINE NEGATIVE (NEGATIVE); BLOOD, URINE 3+ (NEGATIVE); CLARITY/URINE CLOUDY (CLEAR); COLOR,URINE YELLOW (YELLOW); GLUCOSE,URINE NEGATIVE (NEGATIVE); KETONES,URINE NEGATIVE (NEGATIVE); LEUKOCYTE ESTERASE ,URINE 3+ (NEGATIVE); NITRITE, URINE NEGATIVE (NEGATIVE); PROTEIN URINE TRACE (NEGATIVE); UROBILINOGEN,URINE 0.2 (0.2-1.0)
[2020-10-22] MEDS ORDERED: AZITHROMYCIN 500 MG/VIAL (ZITHROMAX) IV ONE (20:16)
[2020-10-22] MEDS ORDERED: cefTRIAXone 2 GM VIAL ONE (20:16)
[2020-10-22 20:27] LABS: BACTERIA,URINE MANY /HPF (None Seen); WBC,URINE 80-100 /HPF (0-3)
[2020-10-22 20:29] LABS: MUCUS,URINE 1+ /LPF (None Seen); OTHER CASTS, URINE WBC CASTS 1+ /LPF (None Seen)
[2020-10-22 20:30] LABS: C-REACTIVE PROTEIN QUANT 1.8 mg/dL (0-0.5)
[2020-10-22] MEDS ORDERED: fentaNYL CITRATE/PF 100 MCG/2 ML AMP ONE (22:52)
[2020-10-22] MEDS ORDERED: fentaNYL CITRATE/PF 100 MCG/2 ML AMP IVP ONE (23:00)
[2020-10-23] MEDS ORDERED: BACLOFEN 10 MG TABLET PO PRN
[2020-10-23] MEDS ORDERED: methocarbamoL 500 MG TABLET PO PRN
[2020-10-23] MEDS ORDERED: ALBUTEROL MDI INHALATION 8 GM INH INH PRN
[2020-10-23] MEDS ORDERED: ZOLPIDEM TARTRATE 5 MG TABLET PO PRN
[2020-10-23] MEDS ORDERED: MAG-AL HYDROX/SIMETH 30 ML UDC PO PRN
[2020-10-23] MEDS ORDERED: IBUPROFEN 400 MG TABLET PO PRN
[2020-10-23] MEDS ORDERED: guaiFENesin/DEXTROMETHORPHAN 10 ML UDC PO PRN
[2020-10-23] MEDS ORDERED: POTASSIUM CHLORIDE 10 MEQ in NACL 0.9% 1,000 ML IV SCH (00:30)
[2020-10-23 01:58] VITALS: BP_SYST 99
[2020-10-23] MEDS: NACL 0.9% 1,000 ML IV SCH ×2 (05:39→15:08)
[2020-10-23 07:46] VITALS: BP_SYST 104
[2020-10-23] MEDS ORDERED: ALBUTEROL SULFATE 0.083% 2.5 MG/3 ML VIAL.NEB INH PRN (08:00)
[2020-10-23] MEDS: METOPROLOL SUCCINATE 25 MG TAB.SR.24H (TOPROL XL) PO SCH (08:22)
[2020-10-23] MEDS: buPROPion HCL 150 MG XL TAB PO SCH (08:22)
[2020-10-23] MEDS: HYDROcodone/ACETAMIN 5-325 MG TAB (NORCO/ VICODIN) PO PRN (08:22)
[2020-10-23] MEDS: hydrALAZINE HCL 25 MG TABLET PO SCH (08:23)
[2020-10-23] MEDS: GABAPENTIN 300 MG CAPSULE PO SCH ×2 (08:23→20:37)
[2020-10-23] MEDS: FERROUS SULFATE 325 MG TABLET.DR PO SCH ×3 (08:23→20:37)
[2020-10-23] MEDS: FLUoxetine HCL 20 MG CAPSULE (PROzac) PO SCH (08:23)
[2020-10-23] MEDS: DILTIAZEM HCL 120 MG CAP.SR.24H PO SCH (08:24)
[2020-10-23] MEDS: ALPRAZolam 0.25 MG TABLET PO SCH ×2 (08:24→20:37)
[2020-10-23] MEDS: EZETIMIBE 10 MG TABLET PO SCH (08:24)
[2020-10-23] MEDS: CYANOCOBALAMIN 1000 mCg TABLET PO SCH (08:24)
[2020-10-23] MEDS: CHOLECALCIFEROL (VITAMIN D3) 2,000 UNIT TABLET PO SCH (08:25)
[2020-10-23] MEDS: MULTIVITS,CA,MINERALS/IRON/FA 1 TABLET PO SCH ×2 (08:25→20:53)
[2020-10-23] MEDS: RIVAROXABAN 10 MG TABLET PO SCH (08:26)
[2020-10-23] MEDS: DOCUSATE SODIUM 100 MG CAPSULE PO SCH (08:26)
[2020-10-23 12:14] VITALS: BP_SYST 113
[2020-10-23 16:02] VITALS: BP_SYST 141
[2020-10-23 20:00] VITALS: BP_SYST 146
[2020-10-23] MEDS ORDERED: ACETAMINOPHEN 325 MG TABLET PO PRN (20:15)
[2020-10-23] MEDS: AMITRIPTYLINE HCL 25 MG TABLET (ELAVIL) PO SCH (20:37)
[2020-10-23] MEDS: TOPIRAMATE 100 MG TABLET(Topamax) PO SCH (20:38)
[2020-10-23] MEDS ORDERED: cefTRIAXone 1 GM IVPB PREMIX 50 ML IV ONE (20:45)
[2020-10-23] MEDS ORDERED: AZITHROMYCIN 500 MG/VIAL (ZITHROMAX) IV ONE (20:45)
[2020-10-23] MEDS: cefTRIAXone 1 GM IVPB PREMIX 50 ML IV SCH (20:52)
[2020-10-23] MEDS: ACETAMINOPHEN 325 MG TABLET PO PRN (21:20)
[2020-10-23] MEDS: AZITHROMYCIN 500 MG in NS 250 ML IV SCH (22:46)
[2020-10-24 00:36] VITALS: BP_SYST 113
[2020-10-24] MEDS: NACL 0.9% 1,000 ML IV SCH ×3 (02:34→19:30)
[2020-10-24 06:16] LABS: BASOPHILS % (AUTO) 0.3 % (0.0-2.0); EOSINOPHILS # (AUTO) 0.1 K/uL (0.0-0.4); EOSINOPHILS % (AUTO) 0.8 % (0.0-4.0); HEMATOCRIT 39.8 % (36-48); HEMOGLOBIN 13.1 g/dL (12.0-16.0); LYMPHOCYTES # (AUTO) 1.6 K/uL (1.0-5.5); LYMPHOCYTES % (AUTO) 12.5 % (20.5-51.5); MEAN CORPUSCULAR HEMOGLOBIN 34 pg (27-31); MEAN CORPUSCULAR HGB CONC 33 % (32-36); MEAN CORPUSCULAR VOLUME 102 fL (79.0-98.0); MONOCYTES # (AUTO) 2.6 K/uL (0.0-1.0); MONOCYTES % (AUTO) 20.8 % (1.7-9.3); NEUTROPHILS # (AUTO) 8.3 K/uL (1.8-7.7); NEUTROPHILS % (AUTO) 65.6 % (40.0-70.0); PLATELET COUNT (AUTO) 89 K/uL (130-430); RED CELL DISTRIBUTION WIDTH 13.5 % (9.0-15.0); WHITE BLOOD COUNT (AUTO) 12.6 K/uL (4.8-10.8)
[2020-10-24 07:23] LABS: ALANINE AMINOTRANSFERASE 36 U/L (12-78); ANION GAP 7 (5-15); ASPARTATE AMINOTRANSFERASE 35 U/L (10-37); CALCIUM 8.3 mg/dL (8.4-11.0); CHLORIDE 108 mmol/L (98-107); CREATININE 0.93 mg/dL (0.55-1.30); GLUCOSE 93 mg/dL (70-99); POTASSIUM 4.2 mmol/L (3.5-5.1); SODIUM SERUM 141 mmol/L (136-145); TOTAL BILIRUBIN 0.5 mg/dL (0.0-1.0); UREA NITROGEN, BLOOD 16 mg/dL (8-21)
[2020-10-24 08:00] VITALS: BP_SYST 139
[2020-10-24] MEDS: DOCUSATE SODIUM 100 MG CAPSULE PO SCH (08:58)
[2020-10-24] MEDS: CHOLECALCIFEROL (VITAMIN D3) 2,000 UNIT TABLET PO SCH (08:58)
[2020-10-24] MEDS: EZETIMIBE 10 MG TABLET PO SCH (08:59)
[2020-10-24] MEDS: MULTIVITS,CA,MINERALS/IRON/FA 1 TABLET PO SCH ×2 (08:59→20:42)
[2020-10-24] MEDS: METOPROLOL SUCCINATE 25 MG TAB.SR.24H (TOPROL XL) PO SCH (08:59)
[2020-10-24] MEDS: FERROUS SULFATE 325 MG TABLET.DR PO SCH ×3 (09:00→20:43)
[2020-10-24] MEDS: GABAPENTIN 300 MG CAPSULE PO SCH ×2 (09:00→20:42)
[2020-10-24] MEDS: CYANOCOBALAMIN 1000 mCg TABLET PO SCH (09:00)
[2020-10-24] MEDS: buPROPion HCL 150 MG XL TAB PO SCH (09:00)
[2020-10-24] MEDS: ALPRAZolam 0.25 MG TABLET PO SCH ×2 (09:01→20:43)
[2020-10-24] MEDS: DILTIAZEM HCL 120 MG CAP.SR.24H PO SCH (09:01)
[2020-10-24] MEDS: hydrALAZINE HCL 25 MG TABLET PO SCH (09:02)
[2020-10-24] MEDS: FLUoxetine HCL 20 MG CAPSULE (PROzac) PO SCH (09:02)
[2020-10-24] MEDS: RIVAROXABAN 10 MG TABLET PO SCH (09:03)
[2020-10-24] MEDS: VANCOMYCIN HCL 1,500 MG in NS 250 ML IV SCH (09:19)
[2020-10-24] MEDS: HYDROcodone/ACETAMIN 5-325 MG TAB (NORCO/ VICODIN) PO PRN ×2 (10:48→20:44)
[2020-10-24] MEDS: ACETAMINOPHEN 325 MG TABLET PO PRN (11:15)
[2020-10-24 12:25] VITALS: BP_SYST 115
[2020-10-24 16:17] VITALS: BP_SYST 111
[2020-10-24 20:00] VITALS: BP_SYST 126
[2020-10-24] MEDS: AMITRIPTYLINE HCL 25 MG TABLET (ELAVIL) PO SCH (20:42)
[2020-10-24] MEDS: TOPIRAMATE 100 MG TABLET(Topamax) PO SCH (20:43)
[2020-10-24] MEDS ORDERED: AZITHROMYCIN 500 MG/VIAL (ZITHROMAX) IV ONE (20:51)
[2020-10-24] MEDS ORDERED: cefTRIAXone 1 GM IVPB PREMIX 50 ML IV ONE (20:51)
[2020-10-24] MEDS: cefTRIAXone 1 GM IVPB PREMIX 50 ML IV SCH (20:53)
[2020-10-24] MEDS: AZITHROMYCIN 500 MG in NS 250 ML IV SCH (20:54)
[2020-10-25 00:11] VITALS: BP_SYST 105
[2020-10-25] MEDS: NACL 0.9% 1,000 ML IV SCH ×2 (02:37→14:51)
[2020-10-25 06:29] VITALS: BP_SYST 128
[2020-10-25 06:46] LABS: BASOPHILS % (AUTO) 0.5 % (0.0-2.0); EOSINOPHILS # (AUTO) 0.2 K/uL (0.0-0.4); EOSINOPHILS % (AUTO) 2.4 % (0.0-4.0); HEMATOCRIT 40.4 % (36-48); HEMOGLOBIN 13.4 g/dL (12.0-16.0); LYMPHOCYTES % (AUTO) 15.2 % (20.5-51.5); MEAN CORPUSCULAR HEMOGLOBIN 34 pg (27-31); MEAN CORPUSCULAR HGB CONC 33 % (32-36); MEAN CORPUSCULAR VOLUME 102 fL (79.0-98.0); MONOCYTES # (AUTO) 0.8 K/uL (0.0-1.0); NEUTROPHILS # (AUTO) 4.8 K/uL (1.8-7.7); NEUTROPHILS % (AUTO) 70.9 % (40.0-70.0); PLATELET COUNT (AUTO) 85 K/uL (130-430); RED BLOOD CELL COUNT(AUTO) 3.96 MIL/uL (4.2-6.2); RED CELL DISTRIBUTION WIDTH 13.8 % (9.0-15.0); WHITE BLOOD COUNT (AUTO) 6.8 K/uL (4.8-10.8)
[2020-10-25 08:50] VITALS: BP_SYST 138
[2020-10-25] MEDS: buPROPion HCL 150 MG XL TAB PO SCH (09:21)
[2020-10-25] MEDS: FLUoxetine HCL 20 MG CAPSULE (PROzac) PO SCH (09:21)
[2020-10-25] MEDS: hydrALAZINE HCL 25 MG TABLET PO SCH (09:23)
[2020-10-25] MEDS: CHOLECALCIFEROL (VITAMIN D3) 2,000 UNIT TABLET PO SCH (09:25)
[2020-10-25] MEDS: RIVAROXABAN 10 MG TABLET PO SCH (09:25)
[2020-10-25] MEDS: DILTIAZEM HCL 120 MG CAP.SR.24H PO SCH (09:26)
[2020-10-25] MEDS: CYANOCOBALAMIN 1000 mCg TABLET PO SCH (09:26)
[2020-10-25] MEDS: MULTIVITS,CA,MINERALS/IRON/FA 1 TABLET PO SCH ×2 (09:26→20:41)
[2020-10-25] MEDS: EZETIMIBE 10 MG TABLET PO SCH (09:27)
[2020-10-25] MEDS: METOPROLOL SUCCINATE 25 MG TAB.SR.24H (TOPROL XL) PO SCH (09:27)
[2020-10-25] MEDS: FERROUS SULFATE 325 MG TABLET.DR PO SCH ×3 (09:28→20:41)
[2020-10-25] MEDS: DOCUSATE SODIUM 100 MG CAPSULE PO SCH (09:28)
[2020-10-25] MEDS: GABAPENTIN 300 MG CAPSULE PO SCH ×2 (09:28→20:40)
[2020-10-25] MEDS: ALPRAZolam 0.25 MG TABLET PO SCH ×2 (09:28→20:40)
[2020-10-25] MEDS: VANCOMYCIN HCL 1,500 MG in NS 250 ML IV SCH (10:16)
[2020-10-25 11:29] VITALS: BP_SYST 125
[2020-10-25] MEDS: CEFEPIME 1 GM in D5W 50 ML IV SCH (12:57)
[2020-10-25 15:27] VITALS: BP_SYST 142
[2020-10-25] MEDS ORDERED: MILK OF MAGNESIA 30 ML UDC PO ONE (19:30)
[2020-10-25] MEDS ORDERED: MILK OF MAGNESIA 30 ML UDC PO PRN (19:30)
[2020-10-25] MEDS: TOPIRAMATE 100 MG TABLET(Topamax) PO SCH (20:40)
[2020-10-25] MEDS: AMITRIPTYLINE HCL 25 MG TABLET (ELAVIL) PO SCH (20:41)
[2020-10-25] MEDS ORDERED: CEFEPIME 1 GM/VIAL (MAXIPIME) ONE (21:23)
[2020-10-25] MEDS ORDERED: AZITHROMYCIN 500 MG/VIAL (ZITHROMAX) IV ONE (21:23)
[2020-10-25] MEDS: AZITHROMYCIN 500 MG in NS 250 ML IV SCH (22:09)
[2020-10-26] MEDS: HYDROcodone/ACETAMIN 5-325 MG TAB (NORCO/ VICODIN) PO PRN ×3 (00:11→23:25)
[2020-10-26] MEDS: CEFEPIME 1 GM in D5W 50 ML IV SCH (00:12)
[2020-10-26 00:35] VITALS: BP_SYST 151
[2020-10-26] MEDS: NACL 0.9% 1,000 ML IV SCH ×3 (01:30→18:43)
[2020-10-26 08:47] VITALS: BP_SYST 151
[2020-10-26 08:56] VITALS: BP_SYST 118
[2020-10-26] MEDS: buPROPion HCL 150 MG XL TAB PO SCH (08:58)
[2020-10-26] MEDS: METOPROLOL SUCCINATE 25 MG TAB.SR.24H (TOPROL XL) PO SCH (08:59)
[2020-10-26] MEDS: ALPRAZolam 0.25 MG TABLET PO SCH ×2 (08:59→21:49)
[2020-10-26] MEDS: CHOLECALCIFEROL (VITAMIN D3) 2,000 UNIT TABLET PO SCH (08:59)
[2020-10-26] MEDS: GABAPENTIN 300 MG CAPSULE PO SCH ×2 (08:59→21:48)
[2020-10-26] MEDS: MULTIVITS,CA,MINERALS/IRON/FA 1 TABLET PO SCH ×2 (08:59→21:49)
[2020-10-26] MEDS: FLUoxetine HCL 20 MG CAPSULE (PROzac) PO SCH (08:59)
[2020-10-26] MEDS: MAGNESIUM GLUCONATE PO SCH (09:00)
[2020-10-26] MEDS: FERROUS SULFATE 325 MG TABLET.DR PO SCH ×3 (09:00→21:53)
[2020-10-26] MEDS: hydrALAZINE HCL 25 MG TABLET PO SCH (09:00)
[2020-10-26] MEDS: DILTIAZEM HCL 120 MG CAP.SR.24H PO SCH (09:00)
[2020-10-26] MEDS: DOCUSATE SODIUM 100 MG CAPSULE PO SCH (09:00)
[2020-10-26] MEDS: CYANOCOBALAMIN 1000 mCg TABLET PO SCH (09:00)
[2020-10-26] MEDS: EZETIMIBE 10 MG TABLET PO SCH (09:01)
[2020-10-26] MEDS: RIVAROXABAN 10 MG TABLET PO SCH (09:02)
[2020-10-26] MEDS: VANCOMYCIN HCL 1,500 MG in NS 250 ML IV SCH (10:19)
[2020-10-26 12:45] VITALS: BP_SYST 143
[2020-10-26 16:22] VITALS: BP_SYST 144
[2020-10-26 20:30] VITALS: BP_SYST 135
[2020-10-26] MEDS: TOPIRAMATE 100 MG TABLET(Topamax) PO SCH (21:50)
[2020-10-26] MEDS: AMITRIPTYLINE HCL 25 MG TABLET (ELAVIL) PO SCH (21:53)
[2020-10-26] MEDS: VANCOMYCIN HCL 1,000 MG in NS 250 ML IV SCH (21:54)
[2020-10-27 00:09] VITALS: BP_SYST 154
[2020-10-27] MEDS: NACL 0.9% 1,000 ML IV SCH (06:25)
[2020-10-27 08:48] VITALS: BP_SYST 139
[2020-10-27] MEDS: FLUoxetine HCL 20 MG CAPSULE (PROzac) PO SCH (08:49)
[2020-10-27] MEDS: CHOLECALCIFEROL (VITAMIN D3) 2,000 UNIT TABLET PO SCH (08:49)
[2020-10-27] MEDS: EZETIMIBE 10 MG TABLET PO SCH (08:49)
[2020-10-27] MEDS: METOPROLOL SUCCINATE 25 MG TAB.SR.24H (TOPROL XL) PO SCH (08:50)
[2020-10-27] MEDS: FERROUS SULFATE 325 MG TABLET.DR PO SCH ×3 (08:50→21:11)
[2020-10-27] MEDS: CYANOCOBALAMIN 1000 mCg TABLET PO SCH (08:50)
[2020-10-27] MEDS: MULTIVITS,CA,MINERALS/IRON/FA 1 TABLET PO SCH ×2 (08:50→21:13)
[2020-10-27] MEDS: GABAPENTIN 300 MG CAPSULE PO SCH ×2 (08:50→21:10)
[2020-10-27] MEDS: RIVAROXABAN 10 MG TABLET PO SCH (08:51)
[2020-10-27] MEDS: ALPRAZolam 0.25 MG TABLET PO SCH ×2 (08:51→21:12)
[2020-10-27] MEDS: buPROPion HCL 150 MG XL TAB PO SCH (08:51)
[2020-10-27] MEDS: DILTIAZEM HCL 120 MG CAP.SR.24H PO SCH (08:51)
[2020-10-27] MEDS: DOCUSATE SODIUM 100 MG CAPSULE PO SCH (08:52)
[2020-10-27] MEDS: MAGNESIUM GLUCONATE PO SCH (09:00)
[2020-10-27] MEDS: VANCOMYCIN HCL 1,000 MG in NS 250 ML IV SCH ×2 (09:07→22:00)
[2020-10-27 12:28] VITALS: BP_SYST 126
[2020-10-27] MEDS: hydrALAZINE HCL 25 MG TABLET PO SCH (14:24)
[2020-10-27 16:55] VITALS: BP_SYST 129
[2020-10-27 19:35] VITALS: BP_SYST 129
[2020-10-27] MEDS: TOPIRAMATE 100 MG TABLET(Topamax) PO SCH (21:11)
[2020-10-27] MEDS: AMITRIPTYLINE HCL 25 MG TABLET (ELAVIL) PO SCH (21:14)
[2020-10-27] MEDS: HYDROcodone/ACETAMIN 5-325 MG TAB (NORCO/ VICODIN) PO PRN (23:21)
[2020-10-28] VITALS: BP_SYST 149
[2020-10-28 07:40] VITALS: BP_SYST 143
[2020-10-28] MEDS: hydrALAZINE HCL 25 MG TABLET PO SCH (08:42)
[2020-10-28] MEDS: FLUoxetine HCL 20 MG CAPSULE (PROzac) PO SCH (08:42)
[2020-10-28] MEDS: DOCUSATE SODIUM 100 MG CAPSULE PO SCH (08:42)
[2020-10-28] MEDS: MULTIVITS,CA,MINERALS/IRON/FA 1 TABLET PO SCH (08:42)
[2020-10-28] MEDS: GABAPENTIN 300 MG CAPSULE PO SCH (08:43)
[2020-10-28] MEDS: buPROPion HCL 150 MG XL TAB PO SCH (08:43)
[2020-10-28] MEDS: FERROUS SULFATE 325 MG TABLET.DR PO SCH ×2 (08:43→16:11)
[2020-10-28] MEDS: CYANOCOBALAMIN 1000 mCg TABLET PO SCH (08:43)
[2020-10-28] MEDS: CHOLECALCIFEROL (VITAMIN D3) 2,000 UNIT TABLET PO SCH (08:43)
[2020-10-28] MEDS: DILTIAZEM HCL 120 MG CAP.SR.24H PO SCH (08:43)
[2020-10-28] MEDS: EZETIMIBE 10 MG TABLET PO SCH (08:43)
[2020-10-28] MEDS: METOPROLOL SUCCINATE 25 MG TAB.SR.24H (TOPROL XL) PO SCH (08:44)
[2020-10-28] MEDS: ALPRAZolam 0.25 MG TABLET PO SCH (08:44)
[2020-10-28] MEDS: RIVAROXABAN 10 MG TABLET PO SCH (08:45)
[2020-10-28] MEDS: MAGNESIUM GLUCONATE PO SCH (08:46)
[2020-10-28] MEDS: VANCOMYCIN HCL 1,000 MG in NS 250 ML IV SCH (10:40)
[2020-10-28 14:18] VITALS: BP_SYST 137
[2020-10-28 15:48] VITALS: BP_SYST 137
== END 2020-10-28 17:30 | DRG 871 ==
LOC: SED 18:53 → STU 22:58 → SMU 10-27 10:33
PROVIDERS: ADMIT Internal Medicine; ATTEND Family Medicine
PROC: 05HY33Z Insertion of Infusion Device into Upper Vein, Percutaneous Approach (ICD-10-PCS; principal; 2020-10-22)
PROC: B54MZZA Ultrasonography of Right Upper Extremity Veins, Guidance (ICD-10-PCS; 2020-10-22)
PROC: 02H633Z Insertion of Infusion Device into Right Atrium, Percutaneous Approach (ICD-10-PCS; 2020-10-22)
PROC: B548ZZA Ultrasonography of Superior Vena Cava, Guidance (ICD-10-PCS; 2020-10-22)
DX: A41.50 Gram-negative sepsis, unspecified (principal); G93.41 Metabolic encephalopathy; J96.01 Acute respiratory failure with hypoxia; N39.0 Urinary tract infection, site not specified; Z68.41 Body mass index [BMI] 40.0-44.9, adult; E66.01 Morbid (severe) obesity due to excess calories; I10 Essential (primary) hypertension; F03.90 Unspecified dementia, unspecified severity, without behavioral disturbance, psychotic disturbance, mood disturbance, and anxiety; E78.5 Hyperlipidemia, unspecified; I48.0 Paroxysmal atrial fibrillation; Z20.822 Contact with and (suspected) exposure to COVID-19; Z99.3 Dependence on wheelchair; Z88.5 Allergy status to narcotic agent; Z88.2 Allergy status to sulfonamides; Z74.01 Bed confinement status; Z79.01 Long term (current) use of anticoagulants; Z86.73 Personal history of transient ischemic attack (TIA), and cerebral infarction without residual deficits; Z90.710 Acquired absence of both cervix and uterus
CPT/HCPCS: 36415; 36600; 70450-TC; 71045; 71275; 76376; 80048; 80053; 80076; 80202; 81000; 82550; 82803-TC; 83605; 83615; 83690; 83880; 84484; 85007; 85025; 85027; 85379; 86140; 87040-TC; 87081; 87086; 93306; 93971; 94640; 94760; 96365; 96368; 96375; 97110-GP; 97112-GP; 97530-GP; 99291; C1751; G0378; J0456; J0692; J0696; J3010; J3370; J3480; J7030; J7050; J7060; J7613; Q9967

== ENCOUNTER 2023-06-16 05:19 | Inpatient (IN) | payer OTHER, MEDICARE ==
[~2023-06-16] VITALS: Ht 162.6 cm; Wt 114.8 kg
[~2023-06-16 05:19] MED LIST changes: -BACL10TA PO
[2023-06-16 05:22] VITALS: BP_SYST 140; PULSE 110; RESP 17; RESP 22; TEMP 97.7; O2SAT 92
[2023-06-16] MEDS: ALBUTEROL SULFATE 0.083% 2.5 MG/3 ML VIAL.NEB INH ONE (06:34)
[2023-06-16] MEDS: IPRATROPIUM BROM 0.5 MG/2.5 ML VIAL.NEB (ATROVENT) INH ONE (06:35)
[2023-06-16 06:39] LABS: BASOPHILS % (AUTO) 0.6 % (0.0-2.0); EOSINOPHILS # (AUTO) 0.1 K/uL (0.0-0.4); EOSINOPHILS % (AUTO) 2.4 % (0.0-4.0); HEMATOCRIT 45.3 % (36-48); HEMOGLOBIN 15.1 g/dL (12.0-16.0); LYMPHOCYTES # (AUTO) 1.7 K/uL (1.0-5.5); LYMPHOCYTES % (AUTO) 29.1 % (20.5-51.5); MEAN CORPUSCULAR HEMOGLOBIN 34 pg (27-31); MEAN CORPUSCULAR HGB CONC 33 % (32-36); MEAN CORPUSCULAR VOLUME 101 fL (79.0-98.0); MONOCYTES # (AUTO) 0.7 K/uL (0.0-1.0); MONOCYTES % (AUTO) 11.7 % (1.7-9.3); NEUTROPHILS # (AUTO) 3.2 K/uL (1.8-7.7); NEUTROPHILS % (AUTO) 56.2 % (40.0-70.0); PLATELET COUNT (AUTO) 151 K/uL (130-430); RED CELL DISTRIBUTION WIDTH 14.3 % (9.0-15.0); WHITE BLOOD COUNT (AUTO) 5.7 K/uL (4.8-10.8)
[2023-06-16 07:01] LABS: INR 1.1 (0.8-1.2)
[2023-06-16 07:02] LABS: ANION GAP 13 (5-15); CARBON DIOXIDE 24 mmol/L (23-29); CHLORIDE 109 mmol/L (98-107); CREATININE 0.96 mg/dL (0.55-1.30); GLUCOSE 128 mg/dL (74-106); POTASSIUM 3.6 mmol/L (3.5-5.1); SODIUM SERUM 146 mmol/L (136-145); UREA NITROGEN, BLOOD 24 mg/dL (8-21)
[2023-06-16 07:09] LABS: ALANINE AMINOTRANSFERASE 41 U/L (12-78); ALBUMIN 3.7 g/dL (3.4-4.8); ASPARTATE AMINOTRANSFERASE 29 U/L (10-37); BILIRUBIN,DIRECT 0.2 mg/dL (0.0-0.3); TOTAL BILIRUBIN 0.6 mg/dL (0.0-1.0)
[2023-06-16 07:44] LABS: COVID19 ANTIGEN SOFIA FIA NEGATIVE (NEGATIVE)
[2023-06-16 07:49] LABS: INFLUENZA TYPE A Negative (NEGATIVE); INFLUENZA TYPE B NEGATIVE (NEGATIVE)
[2023-06-16] MEDS ORDERED: HYDR-3917 PO (10:22)
[2023-06-16] MEDS ORDERED: ONDA-8 TL (10:22)
[2023-06-16] MEDS ORDERED: MELA10TA2 PO (10:22)
[2023-06-16] MEDS ORDERED: AZIT500T3 PO (10:22)
[2023-06-16] MEDS ORDERED: CLOT15CR5 TP (10:22)
[2023-06-16] MEDS ORDERED: GABA300S4 PO (10:22)
[2023-06-16] MEDS ORDERED: EZET-75 PO (10:22)
[2023-06-16] MEDS ORDERED: DIPH28.33 (10:22)
[2023-06-16] MEDS ORDERED: ACET-73 PO (10:22)
[2023-06-16] MEDS ORDERED: ZINC500P17 PO (10:22)
[2023-06-16] MEDS ORDERED: LOPE2CAP PO (10:22)
[2023-06-16] MEDS ORDERED: BACL10TA PO (10:22)
[2023-06-16] MEDS ORDERED: BISA10SU77 RC (10:22)
[2023-06-16] MEDS ORDERED: iohexoL 350 mgI/mL, 100 ML INFUS..BTL IV ONE (10:33)
[2023-06-16] MEDS: D5/0.45 NS 1,000 ML IV ONE (11:29)
[2023-06-16 12:30] VITALS: BP_SYST 116; PULSE 99; RESP 16; TEMP 97.9
[2023-06-16] MEDS ORDERED: BACLOFEN 10 MG TABLET PO PRN (15:15)
[2023-06-16] MEDS ORDERED: ZOLPIDEM TARTRATE 5 MG TABLET PO PRN (15:15)
[2023-06-16] MEDS ORDERED: BISACODYL 10 MG/SUPPOSITORY RC PRN (15:15)
[2023-06-16] MEDS ORDERED: LevALBUTEROL HCL 1.25 MG/0.5 ML *CONC.* VIAL.NEB (XOPENEX CONC.) INH PRN (15:15)
[2023-06-16] MEDS ORDERED: IBUPROFEN 400 MG TABLET PO PRN (15:15)
[2023-06-16] MEDS ORDERED: HYDROcodone/ACETAMIN 5-325 MG TAB (NORCO/ VICODIN) PO PRN (15:15)
[2023-06-16] MEDS ORDERED: LOPERAMIDE HCL 2 MG CAPSULE PO PRN (15:15)
[2023-06-16] MEDS ORDERED: NON-FORMULARY MEDICATION (Ramelteon (Rozerem) 1 TAB) PO PRN (15:15)
[2023-06-16] MEDS ORDERED: CLOTRIMAZOLE/BETAMET DIPROP 15 GM TUBE TP PRN (15:15)
[2023-06-16] MEDS ORDERED: NALOXONE HCL 0.4 MG/ML AMP (NARCAN) IVP PRN (15:15)
[2023-06-16] MEDS ORDERED: MAG-AL HYDROX/SIMETH 30 ML UDC PO PRN (15:15)
[2023-06-16] MEDS ORDERED: methocarbamoL 500 MG TABLET PO PRN (15:15)
[2023-06-16 17:41] VITALS: BP_SYST 127; PULSE 98; O2SAT 92
[2023-06-16] MEDS: AZITHROMYCIN 500 MG in NS 250 ML IV SCH (17:42)
[2023-06-16] MEDS: cefTRIAXone 1 GM IVPB PREMIX 50 ML IV SCH (17:42)
[2023-06-16 20:00] VITALS: BP_SYST 117; PULSE 97; RESP 20; TEMP 98.3; O2SAT 95
[2023-06-16] MEDS: MULTIVITS,CA,MINERALS/IRON/FA 1 TABLET PO SCH (21:40)
[2023-06-16] MEDS: GABAPENTIN 300 MG CAPSULE PO SCH (21:40)
[2023-06-16] MEDS: FERROUS SULFATE 325 MG TABLET.DR PO SCH (21:40)
[2023-06-16] MEDS: AMITRIPTYLINE HCL 25 MG TABLET (ELAVIL) PO SCH (21:40)
[2023-06-16] MEDS: ALPRAZolam 0.25 MG TABLET PO SCH (21:40)
[2023-06-16] MEDS: TOPIRAMATE 25 MG TABLET(TOPAMAX) PO SCH (21:41)
[2023-06-16] MEDS: MELATONIN 5 MG TABLET PO SCH (21:42)
[2023-06-16] MEDS: LevALBUTEROL HCL 1.25 MG/0.5 ML *CONC.* VIAL.NEB (XOPENEX CONC.) INH SCH (23:03)
[2023-06-16 23:14] VITALS: O2SAT 95
[2023-06-17] VITALS (8 sets, daily range): BP systolic 102–160; PULSE 91–105; RESP 19–20; TEMP 97.7–98.4; O2SAT 2–95
[2023-06-17] MEDS ORDERED: NON-FORMULARY MEDICATION (Gabapentin 300 MG) PO SCH (09:00)
[2023-06-17] MEDS: FLUoxetine HCL 20 MG CAPSULE (PROzac) PO SCH (09:22)
[2023-06-17] MEDS: DOCUSATE SODIUM 100 MG CAPSULE PO SCH (09:22)
[2023-06-17] MEDS: MAGNESIUM OXIDE 400 MG TABLET PO SCH (09:22)
[2023-06-17] MEDS: DILTIAZEM HCL 120 MG CAP.SR.24H PO SCH (09:23)
[2023-06-17] MEDS: CYANOCOBALAMIN (VITAMIN B-12) 1,000 MCG TABLET PO SCH (09:23)
[2023-06-17] MEDS: METOPROLOL SUCCINATE 25 MG TAB.SR.24H (TOPROL XL) PO SCH (09:24)
[2023-06-17] MEDS: buPROPion HCL 150 MG XL TAB PO SCH (09:24)
[2023-06-17] MEDS: hydrALAZINE HCL 25 MG TABLET PO SCH (09:24)
[2023-06-17] MEDS: CHOLECALCIFEROL (VITAMIN D3) 2,000 UNIT TABLET PO SCH (09:24)
[2023-06-17] MEDS: EZETIMIBE 10 MG TABLET PO SCH (09:24)
[2023-06-17] MEDS: RIVAROXABAN 10 MG TABLET PO SCH (09:26)
[2023-06-18] VITALS (9 sets, daily range): BP systolic 112–138; PULSE 82–92; RESP 18–20; TEMP 97.6–98.4; O2SAT 91–95
[2023-06-18] MEDS ORDERED: iohexoL 350 mgI/mL, 100 ML INFUS..BTL IV ONE (08:55)
[2023-06-19] VITALS (9 sets, daily range): BP systolic 111–151; PULSE 71–85; RESP 16–20; TEMP 96.8–98.5; O2SAT 91–96
[2023-06-19] MEDS: guaiFENesin/DEXTROMETHORPHAN 10 ML UDC PO PRN (13:08)
== END 2023-06-19 23:56 | disposition short-term general hospital (02) | DRG 194 ==
LOC: SED 05:19 → STU 10:27
PROVIDERS: ADMIT Family Medicine; ATTEND Family Medicine
PROC: 05HY33Z Insertion of Infusion Device into Upper Vein, Percutaneous Approach (ICD-10-PCS; principal; 2023-06-17)
DX: J18.9 Pneumonia, unspecified organism (principal); Z68.41 Body mass index [BMI] 40.0-44.9, adult; Z20.822 Contact with and (suspected) exposure to COVID-19; E66.9 Obesity, unspecified; I10 Essential (primary) hypertension; Z88.2 Allergy status to sulfonamides; Z88.5 Allergy status to narcotic agent; Z86.73 Personal history of transient ischemic attack (TIA), and cerebral infarction without residual deficits
CPT/HCPCS: 36415; 70450-TC; 71045; 71275; 76376; 80048; 80076; 83605; 83880; 84484; 85025; 85610; 85730; 87040; 93005; 94640; 94760; 96361; 96365; 97110-GP; 97116-GP; 97530-GP; 99285; G0378; J0456; J0696; J1956; J7050; J7612; Q9967